=== PATIENT | male | born 1990 | race Caucasian/White ===

== ENCOUNTER 2021-10-05 03:01 | Emergency (ER) | payer OTHER ==
[2021-10-05] MEDS ORDERED: Ketorolac 30 MG/ML SDV IM ONE (03:35)
[2021-10-05] MEDS ORDERED: Diphtheria,Pertussis(Acell),Tetanus Vaccine 0.5 ML Syringe IM ONE (03:37)
== END 2021-10-05 04:33 | disposition home or self-care (01) ==
LOC: MW.ED 03:01
DX: S39.012A Strain of muscle, fascia and tendon of lower back, initial encounter (principal); S80.212A Abrasion, left knee, initial encounter; Z23 Encounter for immunization; W22.09XA Striking against other stationary object, initial encounter
CPT/HCPCS: 90471; 90715; 96372; 99283; J1885

== ENCOUNTER 2023-04-03 13:04 | Emergency (ER) | payer OTHER ==
[2023-04-03 17:18] LABS: HEPATITIS C AB# 0.15 INDEX (<0.8)
== END 2023-04-03 14:18 | disposition home or self-care (01) ==
LOC: MW.ED 13:04
DX: Z77.21 Contact with and (suspected) exposure to potentially hazardous body fluids (principal)
CPT/HCPCS: 36415; 86706; 86803; 87340; 87389; 99283